=== PATIENT | female | born 1970 | race Caucasian/White ===

== ENCOUNTER 2017-07-21 08:00 | Outpatient (CLI) | payer OTHER ==
[2017-07-21 19:24] LABS: BASOPHILS # (AUTO) 0.1 10^3/uL (0.0-0.1); BASOPHILS % (AUTO) 1.2 %; EOSINOPHILS # (AUTO) 0.1 10^3/uL (0.0-0.7); EOSINOPHILS % (AUTO) 0.9 %; HGB - HEMOGLOBIN 13.5 g/dL (12.0-16.0); LYMPHOCYTES # (AUTO) 2.4 10^3/uL (1.5-3.5); LYMPHOCYTES % (AUTO) 30.2 %; MEAN CORPUSCULAR HGB CONC 33.3 g/dL (32.0-36.0); MEAN CORPUSCULAR VOLUME 92.9 fL (81.0-99.0); MEAN PLATELET VOLUME 8.5 fL (7.9-10.8); MONOCYTES # (AUTO) 0.7 10^3/uL (0.0-1.0); MONOCYTES % (AUTO) 8.2 %; NEUTROPHILS # (AUTO) 4.8 10^3/uL (1.5-6.6); NEUTROPHILS % (AUTO) 59.5 %; PLT - PLATELET COUNT 261 10^3/uL (130-450); RED BLOOD COUNT 4.35 10^6/uL (4.20-5.40); RED CELL DISTRIBUTION WIDTH 13.1 % (12.0-15.0); WHITE BLOOD COUNT 8.1 x10^3/uL (4.8-10.8)
[2017-07-21 19:46] LABS: ALBUMIN 4.3 g/dL (3.2-5.5); ALBUMIN/GLOBULIN RATIO 1.5 (1.0-2.2); ALKALINE PHOSPHATASE 46 IU/L (42-121); ALT ALANINE AMINOTRANSFERASE 16 IU/L (10-60); AST ASPARTATE AMINOTRANSFERASE 19 IU/L (10-42); BILIRUBIN,TOTAL 0.2 mg/dL (0.2-1.0); BUN - BLOOD UREA NITROGEN 21 mg/dL (6-20); CARBON DIOXIDE - CO2 26 mmol/L (21-32); CHLORIDE 102 mmol/L (101-111); CHOL/HDL RATIO 3.5 (<4.4); CHOLESTEROL 245 mg/dL; CREATININE 0.7 mg/dL (0.4-1.0); GFR - MDRD 90 (>89); GLUCOSE 96 mg/dL (70-100); HDL CHOLESTEROL 70 mg/dL; LDL CHOLESTEROL,CALCULATED 134 mg/dL; LDL/HDL RATIO 1.9 (<4.4); SODIUM 135 mmol/L (135-145); TOTAL PROTEIN 7.2 g/dL (6.7-8.2); VLDL CHOLESTEROL 41 mg/dL
[2017-07-22 14:01] LABS: HIV AG/AB 4TH GEN NON-REACTIVE (NON-REACTIVE)
== END 2017-07-21 08:01 | disposition home or self-care (01) ==
LOC: LAB.N 08:00
PROVIDERS: ATTEND Nurse Practitioner Gerontology
DX: Z13.9 Encounter for screening, unspecified (principal)
CPT/HCPCS: 36415; 80053; 80061; 83721; 84443; 85025; 87389

== ENCOUNTER 2017-12-29 11:06 | Outpatient (CLI) | payer OTHER ==
--- NOTE | 2017-12-29 12:40 | XRAY Report ---
Reason: BACK PAIN Procedure Date: 12/29/2017 Accession Number: [id number] / [id number] Procedure: XR - Lumbar Spine 2 View CPT Code: FULL RESULT: EXAM: LUMBOSACRAL SPINE RADIOGRAPHY EXAM DATE: 12/29/2017 11:32 AM. CLINICAL HISTORY: Back pain. COMPARISONS: None. TECHNIQUE: 2 views. FINDINGS: Alignment: There is 5 mm rightward lateral listhesis of L4 on L5 with associated degenerative changes. Bones: Five [id number] lumbar vertebral bodies are present. No fractures or bone lesions. Disks: Normal. Disk heights are maintained. Facets: Moderate facet arthropathy is seen at L4 and L5. Sacroiliac Joints: Unremarkable. Soft Tissues: Normal. The visualized bowel gas pattern is normal. IMPRESSION: Degenerative changes of the lower lumbar spine including mild lateral listhesis. RADIA
--- NOTE | 2017-12-29 12:40 | XRAY Report ---
Reason: BACK PAIN Procedure Date: 12/29/2017 Accession Number: [id number] / [id number] Procedure: XR - Cervical Spine 2 View CPT Code: FULL RESULT: EXAM: CERVICAL SPINE RADIOGRAPHY EXAM DATE: 12/29/2017 11:32 AM. CLINICAL HISTORY: Back pain. COMPARISONS: None. TECHNIQUE: 3 views. FINDINGS: Alignment: The patient is status post anterior cervical disk fusion of C6 on C7 with interbody graft. Alignment is generally preserved with expected changes in spinal curvature. Bones: The cervical vertebral bodies and posterior elements are well visualized from the skull base through C7-T1. No fractures or bone lesions. Disks: Disk space height at C4-C5 and C5-C6 is somewhat reduced. Facets: Mild multilevel degenerative disease. Soft Tissues: Normal. No prevertebral soft tissue swelling. The visualized lung apices are clear. IMPRESSION: Status post ACDF. RADIA
== END 2017-12-29 11:07 | disposition home or self-care (01) ==
LOC: DI 11:06
PROVIDERS: ATTEND Nurse Practitioner Gerontology
DX: M50.30 Other cervical disc degeneration, unspecified cervical region (principal); M47.9 Spondylosis, unspecified; Z98.1 Arthrodesis status; M43.16 Spondylolisthesis, lumbar region
CPT/HCPCS: 72040; 72100

== ENCOUNTER 2018-05-20 16:46 | Outpatient (CLI) | payer BC ==
--- NOTE | 2018-05-21 10:56 | Ultrasound Report ---
Reason: SUBCUTANEOUS NODULE OF NECK Procedure Date: 05/20/2018 Accession Number: [id number] / [id number] Procedure: US - Head or Neck Soft Tissue CPT Code: FULL RESULT: EXAM: THYROID ULTRASOUND EXAM DATE: 05/20/2018 05:15 PM. CLINICAL HISTORY: SUBCUTANEOUS NODULE OF NECK. COMPARISON: None. TECHNIQUE: Real time sonographic imaging of the thyroid was performed by the occupational therapy manager. Multiple sales promotion representative static images were saved for review. FINDINGS: THYROID GLAND: Right Lobe: 4.8 x 2.1 x 2.1 cm, volume 11 cc. Normal background echotexture. Right Lobe Nodules: 1. Dominant lower pole complex vascular 2.3 x 1.5 x 2.2 cm 2. Mid pole solid hypoechoic vascular 8 x 7 x 9 mm 3. Mid pole solid hypoechoic vascular 8 x 7 x 8 mm Left Lobe: 3.8 x 1.3 x 1.3 cm, volume 3.4 cc. Normal background echotexture. Left Lobe Nodules: None. Isthmus: 0.2 cm AP. Isthmic Nodules: None. LYMPH NODES: No adenopathy demonstrated in the central or lateral compartment. OTHER: None. IMPRESSION: Dominant complex predominantly cystic with small solid components vascular 2.3 x 1.5 x 2.2 cm nodule. Recommend either FNA or follow-up thyroid ultrasound in 6 months. Management recommendations are based on 2015 [place] [employer] Management Guidelines for Adult Patients with Thyroid Nodules and Differentiated Thyroid Cancer. RADIA
== END 2018-05-20 16:47 | disposition home or self-care (01) ==
LOC: DI 16:46
PROVIDERS: ATTEND Nurse Practitioner Gerontology
DX: E04.2 Nontoxic multinodular goiter (principal)
CPT/HCPCS: 76536

== ENCOUNTER 2018-06-17 09:41 | Outpatient (CLI) | payer BC ==
[2018-06-17] MEDS ORDERED: BUFFERED LIDOCAINE 10 ML SYRINGE ONE (10:25)
--- NOTE | 2018-06-17 12:42 | Ultrasound Report ---
Reason: SUBCUTANEOUS NODULE OF NECK Procedure Date: 06/17/2018 Accession Number: [id number] / [id number] Procedure: US - FNA Bx w/US Gnd 1st les CPT Code: 55542 FULL RESULT: EXAM: THYROID FINE NEEDLE ASPIRATION EXAM DATE: 06/17/2018 10:50 AM. CLINICAL HISTORY: SUBCUTANEOUS NODULE OF NECK. COMPARISON: HEAD OR NECK SOFT TISSUE 05/20/2018 4:59 PM. TECHNIQUE: The risks, benefits, and alternatives of the procedure were discussed with the patient. All questions were answered. Written and verbal consent were obtained. A site was marked over the right thyroid nodule in question under live sonographic evaluation, then subsequently prepped and draped in a sterile manner. Local anesthesia was performed with 1% lidocaine. 4 22 gauge fine-needle aspirates/passes were performed through the right lower lobe thyroid nodule in question, then passed to the leather tacker for preparation. Estimated blood loss was less than 1 mL. Sonographic images demonstrate needle placement within right lower lobe thyroid nodule in question for each sampling. 2 FNA samples were sent in CytoLyt; 2 FNA samples were sent in ThyroSeq. FINDINGS IMPRESSION: Successful right thyroid FNA. Final disposition is pending results of histology. [facility]
[2018-06-17] MEDS ORDERED: BUFFERED LIDOCAINE 10 ML SYRINGE IU ONE (13:48)
== END 2018-06-17 09:42 | disposition home or self-care (01) ==
LOC: DI 09:41
PROVIDERS: ATTEND Nurse Practitioner Gerontology
DX: E04.1 Nontoxic single thyroid nodule (principal)
CPT/HCPCS: 10005